=== PATIENT | male | born 1985 | race Caucasian/White ===

== ENCOUNTER 2018-09-19 09:24 | Emergency (ER) | payer OTHER ==
[~2018-09-19] VITALS: Ht 180.3 cm; Wt 91.4 kg
[2018-09-19] MEDS ORDERED: SEROQUEL XR200 MG PO (09:38)
[2018-09-19] MEDS ORDERED: SERTRALINE50 MG PO (09:38)
[2018-09-19] MEDS ORDERED: RANITIDINE150 M1 PO (09:38)
[2018-09-19 10:19] LABS: HEMATOCRIT 49.6 % (39.0-50.0); HEMOGLOBIN 16.2 g/dl (14.0-18.0); IMMATURE GRANULOCYTES 0.4 % (0.0-5.0); MEAN CELL VOLUME 87.3 fL CALC (80.0-100.0); MEAN CORPUSCULAR HGB 28.5 pG CALC (26.0-32.0); MEAN CORPUSCULAR HGB CONC 32.7 g/L CALC (32.0-36.0); NEUT# 5.78 thou/uL (1.82-7.42); RED BLOOD COUNT 5.68 mill/uL (4.70-6.10); RED CELL DISTRI WIDTH 13.1 % (11.5-15.5)
[2018-09-19 10:32] LABS: ALBUMIN 4.6 g/dL (3.2-5.0); ALKALINE PHOSPHATASE 81 u/l (38-126); ANION GAP 13 (6-22 (CALC)); BILIRUBIN, TOTAL 0.7 mg/dL (0.0-1.4); BUN 16 mg/dL (9-20); BUN/CREATININE RATIO 19 (12-20 (CALC)); CARBON DIOXIDE 26 mmol/l (22-30); CHLORIDE 107 mmol/l (95-108); CREATININE 0.9 mg/dL (0.7-1.3); GFR > 60 ML/MIN (>=60 (CALC)); GFR FOR AFR.AMER. > 60 ML/MIN (>=60 (CALC)); POTASSIUM 4.2 mmol/l (3.5-5.1); SGOT/AST 33 u/l (17-59); SODIUM 141 mmol/l (137-146); TOTAL PROTEIN 8.5 g/dL (6.3-8.2)
[2018-09-19] MEDS ORDERED: BACTRIM DS1 TAB PO (12:41)
[2018-09-19 12:54] VITALS: BP 106/71
== END 2018-09-19 13:08 | disposition designated cancer center or children's hospital (05) | DRG 394 ==
LOC: ED 09:24
PROVIDERS: Emergency Medicine
PROC: 0HQEXZZ Repair Left Lower Arm Skin, External Approach (ICD-10-PCS; principal; 2018-09-19)
DX: T18.4XXA Foreign body in colon, initial encounter (principal); S51.812A Laceration without foreign body of left forearm, initial encounter; S36.69XA Other injury of rectum, initial encounter; F31.9 Bipolar disorder, unspecified; X78.9XXA Intentional self-harm by unspecified sharp object, initial encounter; X83.8XXA Intentional self-harm by other specified means, initial encounter; Y92.149 Unspecified place in prison as the place of occurrence of the external cause
CPT/HCPCS: Q9967

== ENCOUNTER 2019-08-08 21:42 | Emergency (ER) | payer OTHER ==
[~2019-08-08] VITALS: Ht 180.3 cm; Wt 95.4 kg
[~2019-08-08 21:42] MED LIST: BACTRIM DS1 TAB PO; RANITIDINE150 M1 PO; SEROQUEL XR200 MG PO; SERTRALINE50 MG PO
[2019-08-08] MEDS ORDERED: LAMICTAL100 M1 PO (22:00)
[2019-08-08 23:40] VITALS: BP 148/82
== END 2019-08-08 23:40 | disposition designated cancer center or children's hospital (05) | DRG 605 ==
LOC: ED 21:42
DX: S00.01XA Abrasion of scalp, initial encounter (principal); T18.2XXA Foreign body in stomach, initial encounter; S51.812A Laceration without foreign body of left forearm, initial encounter; S51.811A Laceration without foreign body of right forearm, initial encounter; X83.8XXA Intentional self-harm by other specified means, initial encounter; X78.8XXA Intentional self-harm by other sharp object, initial encounter; Y92.149 Unspecified place in prison as the place of occurrence of the external cause

== ENCOUNTER 2020-08-10 18:22 | Emergency (ER) | payer OTHER ==
[~2020-08-10] VITALS: Ht 180.3 cm; Wt 95.0 kg
[~2020-08-10 18:22] MED LIST changes: +LAMICTAL100 M1 PO
[2020-08-10] MEDS ORDERED: NAPROXEN500 MG PO (20:10)
[2020-08-10 20:25] VITALS: BP 121/88
== END 2020-08-10 20:25 | disposition home or self-care (01) | DRG 156 ==
LOC: ED 18:22
DX: S02.2XXA Fracture of nasal bones, initial encounter for closed fracture (principal); J01.00 Acute maxillary sinusitis, unspecified; F31.9 Bipolar disorder, unspecified; Y00.XXXA Assault by blunt object, initial encounter; Y92.149 Unspecified place in prison as the place of occurrence of the external cause

== ENCOUNTER 2021-03-02 20:35 | Emergency (ER) | payer OTHER ==
[~2021-03-02] VITALS: Ht 180.3 cm; Wt 97.0 kg
[~2021-03-02 20:35] MED LIST changes: +NAPROXEN500 MG PO
[2021-03-02 21:15] LABS: IMMATURE GRANULOCYTES 0.2 % (0.0-5.0); MEAN CELL VOLUME 87.8 fL CALC (80.0-100.0); MEAN CORPUSCULAR HGB 29.2 pG CALC (26.0-32.0); MEAN CORPUSCULAR HGB CONC 33.2 g/dL CAL (32.0-36.0); NEUT# 9.95 thou/uL (1.82-7.42); RED BLOOD COUNT 4.52 mill/uL (4.70-6.10); RED CELL DISTRI WIDTH 12.1 % (11.5-15.5)
[2021-03-02 21:18] LABS: HEMATOCRIT 39.7 % (39.0-50.0); HEMOGLOBIN 13.2 g/dl (14.0-18.0)
[2021-03-02 21:26] LABS: ALBUMIN 3.7 g/dL (3.2-5.0); ALKALINE PHOSPHATASE 64 u/l (38-126); ANION GAP 11 (6-22 (CALC)); BILIRUBIN, TOTAL 0.6 mg/dL (0.0-1.4); BUN 24 mg/dL (9-20); BUN/CREATININE RATIO 21 (12-20 (CALC)); CARBON DIOXIDE 23 mmol/l (22-30); CHLORIDE 110 mmol/l (95-108); CPK 151 u/l (52-200); CREATININE 1.1 mg/dL (0.7-1.3); ETHYL ALCOHOL 0 mg/dl (0-30); GFR > 60 ML/MIN (>=60 (CALC)); GFR FOR AFR.AMER. > 60 ML/MIN (>=60 (CALC)); POTASSIUM 4.1 mmol/l (3.5-5.1); SGOT/AST 24 u/l (17-59); SODIUM 140 mmol/l (137-146)
[2021-03-02 21:29] LABS: TOTAL PROTEIN 6.7 g/dL (6.3-8.2)
[2021-03-03 00:51] LABS: URINE BILIRUBIN - DIPSTICK NEGATIVE (NEGATIVE); URINE BLOOD DIPSTICK NEGATIVE (NEGATIVE); URINE COLOR YELLOW; URINE GLUCOSE - DIPSTICK NEGATIVE (NEGATIVE); URINE KETONE TRACE mg/dL (NEGATIVE); URINE LEUK ESTERASE NEGATIVE (NEGATIVE); URINE PROTEIN - DIPSTICK TRACE mg/dL (NEG-TRACE); URINE SPECIFIC GRAVITY >=1.030; URINE UROBILINOGEN - DIPSTICK 0.2 E.U./dL (0.2)
[2021-03-03 00:53] LABS: URINE NITRITE - DIPSTICK NEGATIVE (Negative)
[2021-03-03] MEDS ORDERED: LAMICTAL100 M1 PO (01:10)
[2021-03-03] MEDS ORDERED: CALCIUM CARB500 MG PO (01:12)
[2021-03-03] MEDS ORDERED: AMOXICILLIN500 MG PO (01:13)
[2021-03-03] MEDS ORDERED: IBUPROFEN600 MG PO (01:14)
[2021-03-03 01:20] VITALS: BP 108/64
== END 2021-03-03 01:52 | disposition designated cancer center or children's hospital (05) | DRG 605 ==
LOC: ED 20:35
PROVIDERS: Family Medicine
PROC: 0HQEXZZ Repair Left Lower Arm Skin, External Approach (ICD-10-PCS; principal; 2021-03-02)
DX: S51.812A Laceration without foreign body of left forearm, initial encounter (principal); F31.9 Bipolar disorder, unspecified; X78.8XXA Intentional self-harm by other sharp object, initial encounter; Y92.143 Cell of prison as the place of occurrence of the external cause; Z91.51 Personal history of suicidal behavior

== ENCOUNTER 2021-04-14 18:13 | Emergency (ER) | payer OTHER ==
[~2021-04-14] VITALS: Ht 180.3 cm; Wt 98.0 kg
[~2021-04-14 18:13] MED LIST changes: +AMOXICILLIN500 MG PO; +CALCIUM CARB500 MG PO; +IBUPROFEN600 MG PO
[2021-04-14 19:36] LABS: HEMATOCRIT 39.5 % (39.0-50.0); HEMOGLOBIN 12.4 g/dl (14.0-18.0); IMMATURE GRANULOCYTES 0.1 % (0.0-5.0); MEAN CELL VOLUME 84.8 fL CALC (80.0-100.0); MEAN CORPUSCULAR HGB 26.6 pG CALC (26.0-32.0); MEAN CORPUSCULAR HGB CONC 31.4 g/dL CAL (32.0-36.0); NEUT# 6.95 thou/uL (1.82-7.42); RED BLOOD COUNT 4.66 mill/uL (4.70-6.10); RED CELL DISTRI WIDTH 12.8 % (11.5-15.5)
[2021-04-14 19:53] LABS: ALKALINE PHOSPHATASE 66 u/l (38-126); ANION GAP 15 (6-22 (CALC)); BILIRUBIN, TOTAL 0.6 mg/dL (0.0-1.4); BUN 16 mg/dL (9-20); BUN/CREATININE RATIO 17 (12-20 (CALC)); CARBON DIOXIDE 24 mmol/l (22-30); CHLORIDE 105 mmol/l (95-108); CREATININE 0.9 mg/dL (0.7-1.3); GFR > 60 ML/MIN (>=60 (CALC)); GFR FOR AFR.AMER. > 60 ML/MIN (>=60 (CALC)); POTASSIUM 3.6 mmol/l (3.5-5.1); SGOT/AST 23 u/l (17-59); SODIUM 141 mmol/l (137-146); TOTAL PROTEIN 7.5 g/dL (6.3-8.2)
[2021-04-14 20:00] LABS: ALBUMIN 4.5 g/dL (3.2-5.0)
[2021-04-14] MEDS ORDERED: VIBRAMYCIN100 M2 PO (20:54)
[2021-04-14 21:50] VITALS: BP 132/88
== END 2021-04-14 22:11 | disposition designated cancer center or children's hospital (05) | DRG 989 ==
LOC: ED 18:13
PROVIDERS: Family Medicine
PROC: 0JCG0ZZ Extirpation of Matter from Right Lower Arm Subcutaneous Tissue and Fascia, Open Approach (ICD-10-PCS; principal; 2021-04-14)
DX: M79.5 Residual foreign body in soft tissue (principal); L08.9 Local infection of the skin and subcutaneous tissue, unspecified; F31.9 Bipolar disorder, unspecified; Z91.52 Personal history of nonsuicidal self-harm

== ENCOUNTER 2021-04-18 15:23 | Emergency (ER) | payer OTHER ==
[~2021-04-18] VITALS: Ht 180.3 cm; Wt 93.1 kg
[~2021-04-18 15:23] MED LIST changes: +VIBRAMYCIN100 M2 PO
[2021-04-18] MEDS ORDERED: KEFLEX500 MG PO (19:38)
[2021-04-18 20:19] VITALS: BP 122/68
== END 2021-04-18 20:26 | DRG 876 ==
LOC: ED 15:23
PROC: 0JCG0ZZ Extirpation of Matter from Right Lower Arm Subcutaneous Tissue and Fascia, Open Approach (ICD-10-PCS; principal; 2021-04-18)
DX: R45.88 Nonsuicidal self-harm (principal); S51.841A Puncture wound with foreign body of right forearm, initial encounter; L08.9 Local infection of the skin and subcutaneous tissue, unspecified; F31.9 Bipolar disorder, unspecified; X58.XXXA Exposure to other specified factors, initial encounter; Y92.149 Unspecified place in prison as the place of occurrence of the external cause; Z91.52 Personal history of nonsuicidal self-harm

== ENCOUNTER 2021-07-11 19:31 | Emergency (ER) | payer OTHER ==
[~2021-07-11] VITALS: Ht 180.3 cm; Wt 95.0 kg
[~2021-07-11 19:31] MED LIST changes: +KEFLEX500 MG PO
[2021-07-11 20:02] LABS: HEMATOCRIT 39.7 % (39.0-50.0); HEMOGLOBIN 12.5 g/dl (14.0-18.0); IMMATURE GRANULOCYTES 0.2 % (0.0-5.0); MEAN CELL VOLUME 80.7 fL CALC (80.0-100.0); MEAN CORPUSCULAR HGB 25.4 pG CALC (26.0-32.0); MEAN CORPUSCULAR HGB CONC 31.5 g/dL CAL (32.0-36.0); NEUT# 8.25 thou/uL (1.82-7.42); RED BLOOD COUNT 4.92 mill/uL (4.70-6.10)
[2021-07-11 20:13] LABS: ALBUMIN 3.6 g/dL (3.2-5.0); ALKALINE PHOSPHATASE 60 u/l (38-126); ANION GAP 13 (6-22 (CALC)); BILIRUBIN, TOTAL 0.4 mg/dL (0.0-1.4); BUN 22 mg/dL (9-20); BUN/CREATININE RATIO 21 (12-20 (CALC)); CARBON DIOXIDE 22 mmol/l (22-30); CHLORIDE 109 mmol/l (95-108); CREATININE 1.1 mg/dL (0.7-1.3); ETHYL ALCOHOL 0 mg/dl (0-30); GFR > 60 ML/MIN (>=60 (CALC)); GFR FOR AFR.AMER. > 60 ML/MIN (>=60 (CALC)); MAGNESIUM 1.7 mg/dL (1.6-2.3); POTASSIUM 3.9 mmol/l (3.5-5.1); SGOT/AST 33 u/l (17-59); SODIUM 140 mmol/l (137-146); TOTAL PROTEIN 6.4 g/dL (6.3-8.2)
[2021-07-11] MEDS ORDERED: WELLBUTRIN SR100 MG PO (20:24)
[2021-07-11] MEDS ORDERED: IBUPROFEN600 MG PO (20:25)
[2021-07-11] MEDS ORDERED: QUETIAPINE FUM200 MG PO (20:26)
[2021-07-11] MEDS ORDERED: LEXAPRO20 MG PO (20:27)
[2021-07-11 22:03] LABS: URINE BILIRUBIN - DIPSTICK NEGATIVE (NEGATIVE); URINE BLOOD DIPSTICK NEGATIVE (NEGATIVE); URINE COLOR YELLOW; URINE GLUCOSE - DIPSTICK NEGATIVE (NEGATIVE); URINE KETONE 15 mg/dL (NEGATIVE); URINE LEUK ESTERASE NEGATIVE (NEGATIVE); URINE PROTEIN - DIPSTICK 30 mg/dL (NEG-TRACE); URINE SPECIFIC GRAVITY >=1.030; URINE UROBILINOGEN - DIPSTICK 0.2 E.U./dL (0.2)
[2021-07-11 22:05] LABS: URINE NITRITE - DIPSTICK NEGATIVE (Negative); URINE RBC 0-2 RBC/hpf (0-5); URINE WBC 0-2 WBC/hpf (0-5)
[2021-07-11 22:25] VITALS: BP 100/76
== END 2021-07-11 22:25 | disposition designated cancer center or children's hospital (05) | DRG 605 ==
LOC: ED 19:31
PROVIDERS: Family Medicine
PROC: 0HQDXZZ Repair Right Lower Arm Skin, External Approach (ICD-10-PCS; principal; 2021-07-11)
DX: S51.811A Laceration without foreign body of right forearm, initial encounter (principal); F31.9 Bipolar disorder, unspecified; X78.9XXA Intentional self-harm by unspecified sharp object, initial encounter; Y92.149 Unspecified place in prison as the place of occurrence of the external cause; Z91.52 Personal history of nonsuicidal self-harm

== ENCOUNTER 2021-07-17 16:46 | Emergency (ER) | payer OTHER ==
[~2021-07-17] VITALS: Ht 180.3 cm; Wt 75.0 kg
[~2021-07-17 16:46] MED LIST changes: +LEXAPRO20 MG PO; +QUETIAPINE FUM200 MG PO; +WELLBUTRIN SR100 MG PO
[2021-07-17 16:57] VITALS: BP 116/81
[2021-07-17 17:00] VITALS: BP 109/80
[2021-07-17 17:15] VITALS: BP 119/76
[2021-07-17 17:30] VITALS: BP 112/82
== END 2021-07-17 17:52 | disposition home or self-care (01) | DRG 370 ==
LOC: ED 16:46
DX: S27.818A Other injury of esophagus (thoracic part), initial encounter (principal); F31.9 Bipolar disorder, unspecified; X58.XXXA Exposure to other specified factors, initial encounter; Y92.149 Unspecified place in prison as the place of occurrence of the external cause; Z91.52 Personal history of nonsuicidal self-harm

== ENCOUNTER 2021-09-01 14:36 | Observation (INO) | payer OTHER ==
[2021-09-01] VITALS (9 sets, daily range): BP systolic 90–118; BP diastolic 54–83
[~2021-09-01] VITALS: Ht 180.3 cm; Wt 93.0 kg
--- NOTE | 2021-09-01 14:57 | NUR ---
PT AMBULATED TO TX ROOM , STABLE
--- NOTE | 2021-09-01 16:14 | NUR ---
PT C/O OF 10/10 PAIN IN RIGHT ELBOW WHEN IT IS FLEXED. 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 TORODOL GIVEN.
[2021-09-01] MEDS ORDERED: OMEPRAZOLE DR20 MG PO (16:30)
[2021-09-01] MEDS ORDERED: DOXYCYCL HYC100 M4 PO (16:31)
[2021-09-01 16:44] LABS: HEMATOCRIT 33.3 % (39.0-50.0); HEMOGLOBIN 10.3 g/dl (14.0-18.0); MEAN CELL VOLUME 74.5 fL CALC (80.0-100.0); MEAN CORPUSCULAR HGB CONC 30.9 g/dL CAL (32.0-36.0); NEUT# 3.14 thou/uL (1.82-7.42); RED BLOOD COUNT 4.47 mill/uL (4.70-6.10); RED CELL DISTRI WIDTH 15.9 % (11.5-15.5)
[2021-09-01 16:57] LABS: ALKALINE PHOSPHATASE 70 u/l (38-126); ANION GAP 12 (6-22 (CALC)); BUN 20 mg/dL (9-20); BUN/CREATININE RATIO 21 (12-20 (CALC)); CARBON DIOXIDE 26 mmol/l (22-30); CHLORIDE 106 mmol/l (95-108); GFR FOR AFR.AMER. > 60 ML/MIN (>=60 (CALC)); GFR OTHER RACES > 60 ML/MIN (>=60 (CALC)); POTASSIUM 4.1 mmol/l (3.5-5.1); SGOT/AST 25 u/l (17-59); SODIUM 140 mmol/l (137-146)
[2021-09-01 17:01] LABS: ALBUMIN 4.5 g/dL (3.2-5.0); BILIRUBIN, TOTAL 0.2 mg/dL (0.0-1.4); TOTAL PROTEIN 7.7 g/dL (6.3-8.2)
--- NOTE | 2021-09-01 17:10 | NUR ---
PT IS ASKING FOR POWER OF ATTORNY. INFORMED PT THAT HE IS AN INMATE.
--- NOTE | 2021-09-01 18:10 | NUR ---
PT TO BE TRANSFERRED TO 267.
--- NOTE | 2021-09-01 18:30 | NUR ---
RECEIVED PATINET UP FROM ED AT THIS TIME. PATIENT PRESENTS WITH TWO GUARDS AT BEDSIDE AND RIGHT LEG SCHACKLED TO BED AT THIS TIME. INSPECTOR INTEGRATED CIRCUITS DONE AT THIS TIME. PATIENT PRESENT WITH INJURY TO RIGHT ARM AND STATED THAT HE "PLACED TWO WIRES IN HIS ARM BECAUSE HE WANTED TO". THIS IS NOTED REDDNESS AND FOREIGN OBJECT IS FELT UNDER SKIN. PATIENT IS ALERT AND ORIENTED X 3 AND STATED HIS PAIN IS A 4 WHEN HE BENDS HIS ARMS AND WAS PREVIOUSLY MEDICATED IN ED. LUNG MATHEWS ARE CLEAR AND BOWEL SOUNDS PRESENT IN ALL FOUR QUADRANTS AND STATES HIS LAST BOWEL MOVEMENT WAS THIS AM. PATIENT INFORMED ABOUT ROOM AND ROOM SAFETY AND WAS INFORMED THAT HE WILL BE NPO AFTER MIDNIGHT. SIDERAILS ARE UP X 2 CALL LIGHT IS WITHIN REACH AND GUARDS AT BEDSIDE.
--- NOTE | 2021-09-01 18:35 | NUR ---
REPORT GIVEN BEDSIDE TO RN
--- NOTE | 2021-09-01 23:44 | NUR ---
PATIENT RESTING IN BED AT THIS TIME DENIES ANY PAIN AND OR NEEDS CURRENTLY. PATIENT RIGHT ANKLE SCHAKLED TO BED AT THIS TIME AND TWO GUARDS AT BEDSIDE. SIDERAILS ARE UP CALL LIGHT IS WITHIN REACH.
--- NOTE | 2021-09-02 03:42 | NUR ---
PATIENT RESTING IN BED AT THIS TIME WITH EYES CLOSED. RESPIRATIONS EASY AND UNLABORED. PATINET REMAINS NPO AT THIS TIME FOR SURGICAL PROCEEDURE THIS AM. TWO GAURDS ARE AT BEDSIDE AND RIGHT ANKLE REMAINS SCHAKLED TO BED AT THIS TIME WITHOUT ANY CONTRICTION OF BLOOD FLOW. SIDERAILS ARE UP CALL LIGHT IS WITHIN REACH. WILL CONTINUE TO MONITOR.
[2021-09-02 04:00] VITALS: BP 110/75
[2021-09-02 04:14] VITALS: BP 110/75
[2021-09-02 07:01] VITALS: BP 120/87
--- NOTE | 2021-09-02 08:30 | NUR ---
PT WATCHING TV UPON ENTERING ROOM. 2 GUARDS AT BEDSIDE. PT IS A&OX3. RIGHT FORAREM REDNESS WITH 3 SITES OF PUNCTURE OF FOREIGN OBJECT. ASSESSMENT ALLOWED. IVF INFUSING PER EMAR. IV LAC 20G. FALL/SAFETY PRECAUTION IN PLACE. CALL LIGHT WITHIN REACH
--- NOTE | 2021-09-02 09:18 | NUR ---
ANGLESMITH TRANSPORTED TO OR VIA STRETCHER WITH 2 CIVIL COMMITMENT MONISHA
[2021-09-02] MEDS ORDERED: KEFLEX500 MG PO (10:58)
[2021-09-02 11:45] VITALS: BP 106/79
--- NOTE | 2021-09-02 13:15 | NUR ---
Discharge instructions given. Patient verbalizes understanding of same. Discharged in stable condition via Wheelchair to Home with staff. All belongings sent with pt.
== END 2021-09-02 13:15 | disposition designated cancer center or children's hospital (05) | DRG 909 ==
LOC: ED 14:36 → ED-I 14:52 → ED 16:18 → MS2 16:19
PROVIDERS: Nurse Practitioner; ADMIT Hospitalist; ATTEND Hospitalist
PROC: 0JCG0ZZ Extirpation of Matter from Right Lower Arm Subcutaneous Tissue and Fascia, Open Approach (ICD-10-PCS; principal; 2021-09-02)
DX: S51.841A Puncture wound with foreign body of right forearm, initial encounter (principal); L08.9 Local infection of the skin and subcutaneous tissue, unspecified; F31.9 Bipolar disorder, unspecified; X83.8XXA Intentional self-harm by other specified means, initial encounter; Y92.149 Unspecified place in prison as the place of occurrence of the external cause; Z91.52 Personal history of nonsuicidal self-harm; Z20.822 Contact with and (suspected) exposure to COVID-19
CPT/HCPCS: C9290; G0378; J0131

== ENCOUNTER 2021-09-07 10:33 | Emergency (ER) | payer OTHER ==
[~2021-09-07] VITALS: Ht 180.3 cm; Wt 93.8 kg
[~2021-09-07 10:33] MED LIST changes: +DOXYCYCL HYC100 M4 PO; +OMEPRAZOLE DR20 MG PO
[2021-09-07 10:46] VITALS: BP 134/78
[2021-09-07 11:00] VITALS: BP 136/99
[2021-09-07 11:30] VITALS: BP 129/79
[2021-09-07 12:00] VITALS: BP 130/89
[2021-09-07] MEDS ORDERED: BACTRIM DS1 TAB PO (12:23)
[2021-09-07 12:30] VITALS: BP 127/87
[2021-09-07 12:33] VITALS: BP 127/87
== END 2021-09-07 12:40 | disposition designated cancer center or children's hospital (05) | DRG 914 ==
LOC: ED 10:33
DX: S51.841A Puncture wound with foreign body of right forearm, initial encounter (principal); L08.9 Local infection of the skin and subcutaneous tissue, unspecified; F31.9 Bipolar disorder, unspecified; X78.8XXA Intentional self-harm by other sharp object, initial encounter; Y92.149 Unspecified place in prison as the place of occurrence of the external cause; Z91.52 Personal history of nonsuicidal self-harm

== ENCOUNTER 2021-09-11 08:51 | Emergency (ER) | payer OTHER ==
[~2021-09-11] VITALS: Ht 180.3 cm; Wt 100.0 kg
[2021-09-11] VITALS (24 sets, daily range): BP systolic 101–130; BP diastolic 74–94
[2021-09-11 12:31] LABS: HEMATOCRIT 35.6 % (39.0-50.0); HEMOGLOBIN 10.5 g/dl (14.0-18.0); MEAN CELL VOLUME 75.4 fL CALC (80.0-100.0); MEAN CORPUSCULAR HGB 22.2 pG CALC (26.0-32.0); MEAN CORPUSCULAR HGB CONC 29.5 g/dL CAL (32.0-36.0); NEUT# 2.45 thou/uL (1.82-7.42); RED BLOOD COUNT 4.72 mill/uL (4.70-6.10); RED CELL DISTRI WIDTH 16.6 % (11.5-15.5)
[2021-09-11 12:39] LABS: ALBUMIN 4.5 g/dL (3.2-5.0); ALKALINE PHOSPHATASE 70 u/l (38-126); BUN 13 mg/dL (9-20); BUN/CREATININE RATIO 11 (12-20 (CALC)); CARBON DIOXIDE 25 mmol/l (22-30); CHLORIDE 106 mmol/l (95-108); CREATININE 1.2 mg/dL (0.7-1.3); GFR FOR AFR.AMER. > 60 ML/MIN (>=60 (CALC)); GFR OTHER RACES > 60 ML/MIN (>=60 (CALC)); SODIUM 139 mmol/l (137-146)
[2021-09-11 12:40] LABS: ANION GAP 13 (6-22 (CALC)); BILIRUBIN, TOTAL 0.8 mg/dL (0.0-1.4); POTASSIUM 5.3 mmol/l (3.5-5.1); SGOT/AST 60 u/l (17-59)
[2021-09-11] MEDS ORDERED: OMNICEF300 M1 PO (16:26)
== END 2021-09-11 16:47 | disposition home or self-care (01) | DRG 909 ==
LOC: ED 08:51
PROVIDERS: Family Medicine
PROC: 0JCG0ZZ Extirpation of Matter from Right Lower Arm Subcutaneous Tissue and Fascia, Open Approach (ICD-10-PCS; principal; 2021-09-11)
DX: S51.841A Puncture wound with foreign body of right forearm, initial encounter (principal); X79.XXXA Intentional self-harm by blunt object, initial encounter; F31.9 Bipolar disorder, unspecified; Z91.52 Personal history of nonsuicidal self-harm

== ENCOUNTER 2021-09-27 14:48 | Emergency (ER) | payer OTHER ==
[~2021-09-27] VITALS: Ht 180.3 cm; Wt 92.3 kg
[2021-09-27] VITALS (13 sets, daily range): BP systolic 114–129; BP diastolic 76–92
[~2021-09-27 14:48] MED LIST changes: +OMNICEF300 M1 PO
[2021-09-27] MEDS ORDERED: AMOX/K CLAV875 M1 PO (17:01)
== END 2021-09-27 17:52 | disposition designated cancer center or children's hospital (05) | DRG 605 ==
LOC: ED 14:48
PROC: 0HCDXZZ Extirpation of Matter from Right Lower Arm Skin, External Approach (ICD-10-PCS; principal; 2021-09-27)
DX: S50.851A Superficial foreign body of right forearm, initial encounter (principal); L03.113 Cellulitis of right upper limb; F31.9 Bipolar disorder, unspecified; Y28.8XXA Contact with other sharp object, undetermined intent, initial encounter; Y92.149 Unspecified place in prison as the place of occurrence of the external cause; Z91.52 Personal history of nonsuicidal self-harm